=== PATIENT | male | born 1955 | race African-American/Black ===

== ENCOUNTER 2021-11-21 23:36 | Inpatient (IN) ==
[2021-11-21] MEDS ORDERED: ALBUTEROL 2.5 MG/3 ML NEB RESP TX STA (23:56)
[2021-11-21] MEDS ORDERED: ALBUTEROL/IPRATROPIUM 3 ML NEB RESP TX STA (23:56)
[2021-11-21] MEDS ORDERED: NITROGLYCERIN 2% OINT 1 INCH/GM PACK TOP STA (23:56)
[2021-11-21] MEDS ORDERED: methylPREDNISolone SOD SUC 125 MG/2 ML VIAL IV STA (23:56)
[2021-11-21] MEDS ORDERED: ASPIRIN 325 MG TABLET PO STA (23:56)
[2021-11-21] MEDS ORDERED: FUROSEMIDE 40 MG/4 ML VIAL IV STA (23:57)
[2021-11-22 00:15] LABS: Basophils # 0.1 10*3/uL (0.0-0.2); Basophils % 0.9 % (0.0-0.8); Eosinophils # 0.5 10*3/uL (0.0-0.87); Eosinophils % 6.7 % (0.00-10.9); Hemoglobin 12.1 GM/DL (14.0-18.0); Immature Granulocytes % 0.5 %; Immature Granulocytes Absolute 0.04 #; Lymphocytes # 1.4 10*3/uL (1.4-4.0); Lymphocytes % 17.3 % (21.2-54.2); Mean Corpuscular HGB Conc 29.5 GM/DL (32-36); Mean Corpuscular Volume 88.7 FL (87-102); Monocytes # 0.5 10*3/uL (0.11-0.8); Monocytes % 5.8 % (1.7-12.7); Neutrophils % 68.8 % (38.7-73.9); Platelet Count 212 T/CUMM (130-400); Red Blood Count 4.62 MC/CUMM (3.8-5.5); Red Cell Distribution Width 16.3 % (9.3-17.3); White Blood Count 8.1 T/CUMM (4-12)
[2021-11-22 00:27] LABS: Arterial Base Excess iSTAT 3 MMOL/L (-2.5-2.5); Arterial Bicarbonate iSTAT 30.6 MMOL/L (20-26); Arterial O2 Saturation iSTAT 89 % (95-100); Arterial PCO2 iSTAT 58 MM HG (35-48); Arterial PO2 iSTAT 63 MM HG (80-95); Arterial Total CO2 iSTAT 32 MMO/L (23-27); Arterial pH iSTAT 7.332 (7.35-7.45)
[2021-11-22 00:32] LABS: Albumin 3.1 G/DL (3.4-5.0); Bilirubin,Total 0.5 MG/DL (0.20-1.00); Calcium 8.8 MG/DL (8.5-10.1); Total Protein 7.4 G/DL (6.4-8.2)
[2021-11-22] MEDS ORDERED: VANCOMYCIN INJ 1,000 MG in SODIUM CHLORIDE 0.9% 250 ML IV STA (00:43)
[2021-11-22] MEDS ORDERED: PIPERACILLIN/TAZOBACTAM 3,375 MG in SODIUM CHLORIDE 0.9% 100 ML IV STA (00:43)
[2021-11-22] MEDS ORDERED: ALBUTEROL 2.5 MG/3 ML NEB RESP TX STA (00:45)
[2021-11-22 00:46] LABS: PT Patient Result 11.4 SECS (10.5-12.0)
[2021-11-22] MEDS ORDERED: ONDANSETRON 4 MG/2 ML VIAL IV PRN (02:09)
[2021-11-22] MEDS ORDERED: cefTRIAXone 2,000 MG in SODIUM CHLORIDE 0.9% 100 ML IV SCH ×2 (02:30→13:00)
[2021-11-22 07:07] LABS: Albumin 3.3 G/DL (3.4-5.0); Bilirubin,Total 0.6 MG/DL (0.20-1.00); Calcium 9.2 MG/DL (8.5-10.1); Osmolality,Calculated 282.4 MOS/KG (273-304); Potassium 4.1 MMOL/L (3.5-5.1); Total Protein 7.4 G/DL (6.4-8.2)
[2021-11-22 07:14] LABS: Basophils % 0.2 % (0.0-0.8); Eosinophils % 0.2 % (0.00-10.9); Hematocrit 39.4 VOL% (42.0-52.0); Hemoglobin 11.8 GM/DL (14.0-18.0); Immature Granulocytes % 0.2 %; Immature Granulocytes Absolute 0.01 #; Lymphocytes # 0.3 10*3/uL (1.4-4.0); Lymphocytes % 7.3 % (21.2-54.2); Mean Corpuscular HGB Conc 29.9 GM/DL (32-36); Mean Corpuscular Volume 88.3 FL (87-102); Mean Platelet Volume 11.9 FL (9.6-12.0); Monocytes # 0.1 10*3/uL (0.11-0.8); Monocytes % 1.3 % (1.7-12.7); Neutrophils % 90.8 % (38.7-73.9); Platelet Count 189 T/CUMM (130-400); Red Blood Count 4.46 MC/CUMM (3.8-5.5); Red Cell Distribution Width 15.9 % (9.3-17.3); White Blood Count 4.5 T/CUMM (4-12)
[2021-11-22 07:17] LABS: Eosinophils 1 % (0-10); Hypochromia Slight; Lymphocytes 7 % (20-55); Microcytosis Slight; Platelet Estimate Adequate; Total Cells Counted 100
[2021-11-22] MEDS: ALBUTEROL/IPRATROPIUM 3 ML NEB RESP TX SCH ×3 (07:42→19:45)
[2021-11-22] MEDS: VALSARTAN 80 MG TABLET PO SCH (09:00)
[2021-11-22] MEDS: PANTOPRAZOLE 40 MG TABLET PO SCH (09:00)
[2021-11-22] MEDS: SPIRONOLACTONE 25 MG TABLET PO SCH (09:00)
[2021-11-22] MEDS: ASPIRIN EC 81 MG TABLET PO SCH (09:00)
[2021-11-22] MEDS: carvediloL 12.5 MG TABLET PO SCH ×2 (09:00→20:50)
[2021-11-22] MEDS: ENOXAPARIN 40 MG/0.4 ML SYRINGE SUBCUT SCH (09:00)
[2021-11-22] MEDS: BUDESONIDE/FORMOTEROL 160-4.5 INHALER 6 GM INH SCH ×2 (09:00→20:51)
[2021-11-22] MEDS: methylPREDNISolone SOD SUC 40 MG/1 ML VIAL IV SCH ×2 (09:26→17:19)
[2021-11-22] MEDS: AZITHROMYCIN INJ 500 MG in SODIUM CHLORIDE 0.9% 250 ML IV SCH (12:08)
[2021-11-22] MEDS: ACETAMINOPHEN 325 MG TABLET PO PRN (15:41)
[2021-11-22] MEDS: ISOSORBIDE DINITRATE 10 MG TABLET PO SCH (17:19)
[2021-11-22] MEDS ORDERED: ROSUVASTATIN 20 MG TABLET PO SCH (21:00)
[2021-11-23] MEDS: ALBUTEROL/IPRATROPIUM 3 ML NEB RESP TX SCH ×3 (00:30→13:55)
[2021-11-23] MEDS: methylPREDNISolone SOD SUC 40 MG/1 ML VIAL IV SCH ×2 (02:57→09:57)
[2021-11-23] MEDS: ACETAMINOPHEN 325 MG TABLET PO PRN (08:23)
[2021-11-23] MEDS: ISOSORBIDE DINITRATE 10 MG TABLET PO SCH (08:24)
[2021-11-23] MEDS: ENOXAPARIN 40 MG/0.4 ML SYRINGE SUBCUT SCH (09:46)
[2021-11-23] MEDS: carvediloL 12.5 MG TABLET PO SCH (09:48)
[2021-11-23] MEDS: VALSARTAN 80 MG TABLET PO SCH (09:49)
[2021-11-23] MEDS: PANTOPRAZOLE 40 MG TABLET PO SCH (09:49)
[2021-11-23] MEDS: SPIRONOLACTONE 25 MG TABLET PO SCH (09:50)
[2021-11-23] MEDS: ASPIRIN EC 81 MG TABLET PO SCH (09:50)
[2021-11-23] MEDS: BUDESONIDE/FORMOTEROL 160-4.5 INHALER 6 GM INH SCH (09:54)
[2021-11-23 12:08] VITALS: BP 157/83
[2021-11-23] MEDS: AZITHROMYCIN INJ 500 MG in SODIUM CHLORIDE 0.9% 250 ML IV SCH (12:18)
== END 2021-11-23 14:00 | disposition home or self-care (01) | DRG 140 ==
LOC: N.ED 23:36 → N.EDINP 11-22 01:54 → N.TELEN 11-22 17:03
PROVIDERS: ADMIT Internal Medicine; ATTEND Internal Medicine

== ENCOUNTER 2022-04-21 21:22 | Observation (INO) ==
[2022-04-21 21:50] LABS: Basophils % 0.4 % (0.0-0.8); Eosinophils # 0.3 10*3/uL (0.0-0.87); Eosinophils % 3.1 % (0.00-10.9); Hematocrit 39.7 VOL% (42.0-52.0); Immature Granulocytes % 0.6 %; Immature Granulocytes Absolute 0.05 #; Lymphocytes # 1.6 10*3/uL (1.4-4.0); Lymphocytes % 17.6 % (21.2-54.2); Mean Corpuscular HGB Conc 30.2 GM/DL (32-36); Mean Corpuscular Volume 86.7 FL (87-102); Mean Platelet Volume 11.4 FL (9.6-12.0); Monocytes # 0.5 10*3/uL (0.11-0.8); Neutrophils % 72.3 % (38.7-73.9); Platelet Count 234 T/CUMM (130-400); Red Blood Count 4.58 MC/CUMM (3.8-5.5); Red Cell Distribution Width 15.3 % (9.3-17.3); White Blood Count 8.9 T/CUMM (4-12)
[2022-04-21] MEDS ORDERED: methylPREDNISolone SOD SUC 125 MG/2 ML VIAL IV STA (22:00)
[2022-04-21] MEDS ORDERED: SODIUM CHLORIDE 0.9% 1,000 ML IV STA (22:00)
[2022-04-21] MEDS ORDERED: ALBUTEROL 2.5 MG/3 ML NEB RESP TX STA (22:00)
[2022-04-21] MEDS ORDERED: ALBUTEROL/IPRATROPIUM 3 ML NEB RESP TX STA (22:00)
[2022-04-21 22:12] LABS: INR 1.1; PT Patient Result 12.1 SECS (10.1-12.1)
[2022-04-21 22:20] LABS: Albumin 3.2 G/DL (3.4-5.0); Bilirubin,Total 0.7 MG/DL (0.20-1.00); Total Protein 7.6 G/DL (6.4-8.2)
[2022-04-21] MEDS ORDERED: FUROSEMIDE 40 MG/4 ML VIAL IV STA (22:23)
[2022-04-21 22:28] LABS: Arterial Base Excess iSTAT 4 MMOL/L (-2.5-2.5); Arterial Bicarbonate iSTAT 29.3 MMOL/L (20-26); Arterial O2 Saturation iSTAT 99 % (95-100); Arterial PCO2 iSTAT 48 MM HG (35-48); Arterial PO2 iSTAT 160 MM HG (80-95); Arterial Total CO2 iSTAT 31 MMO/L (23-27); Arterial pH iSTAT 7.397 (7.35-7.45)
[2022-04-21 23:54] LABS: Mucus,Urine Occasional /LPF (Occasional)
[2022-04-21 23:56] LABS: Bilirubin,Urine Negative (Negative); Blood, Urine Negative (Negative); Glucose,Urine (UA) Negative (Negative); Ketones,Urine Negative (Negative); Nitrite,Urine Negative (Negative); Protein,Urine Trace mg/dL (Negative); Urine Appearance Clear (Clear); Urine Color Yellow (Yellow); Urine Specific Gravity 1.025 (1.001-1.035); Urine Urobilinogen 0.2 eU/dL (<2.0)
[2022-04-22] MEDS ORDERED: cefTRIAXone 1,000 MG in SODIUM CHLORIDE 0.9% 100 ML IV STA (00:43)
[2022-04-22] MEDS ORDERED: AZITHROMYCIN INJ 500 MG in SODIUM CHLORIDE 0.9% 250 ML IV STA (00:43)
[2022-04-22] MEDS ORDERED: hydrALAZINE 20 MG/1 ML VIAL IV PRN (01:11)
[2022-04-22] MEDS ORDERED: ACETAMINOPHEN 325 MG TABLET PO PRN (01:11)
[2022-04-22] MEDS ORDERED: MORPHINE 2 MG/1 ML SYRINGE IV PRN (01:11)
[2022-04-22] MEDS ORDERED: ONDANSETRON 4 MG/2 ML VIAL IV PRN (01:11)
[2022-04-22] MEDS: methylPREDNISolone SOD SUC 40 MG/1 ML VIAL IV SCH ×3 (05:10→22:19)
[2022-04-22 06:14] LABS: Calcium 9.4 MG/DL (8.5-10.1); Osmolality,Calculated 280.5 MOS/KG (273-304); Potassium 3.4 MMOL/L (3.5-5.1)
[2022-04-22 06:33] LABS: Basophils % 0.2 % (0.0-0.8); Eosinophils % 0.2 % (0.00-10.9); Hematocrit 44.3 VOL% (42.0-52.0); Immature Granulocytes % 0.6 %; Immature Granulocytes Absolute 0.03 #; Lymphocytes # 0.3 10*3/uL (1.4-4.0); Lymphocytes % 6.7 % (21.2-54.2); Mean Corpuscular HGB Conc 30.5 GM/DL (32-36); Mean Corpuscular Volume 86.2 FL (87-102); Mean Platelet Volume 12.8 FL (9.6-12.0); Monocytes # 0.1 10*3/uL (0.11-0.8); Neutrophils % 91.3 % (38.7-73.9); Platelet Count 244 T/CUMM (130-400); Red Blood Count 5.14 MC/CUMM (3.8-5.5); Red Cell Distribution Width 15.2 % (9.3-17.3); White Blood Count 5.1 T/CUMM (4-12)
[2022-04-22 06:34] LABS: Hemoglobin 13.5 GM/DL (14.0-18.0)
[2022-04-22 06:42] LABS: Lymphocytes 2 % (20-55); Platelet Estimate Adequate; Total Cells Counted 100
[2022-04-22 06:43] LABS: Hypochromia Slight
[2022-04-22] MEDS: ALBUTEROL/IPRATROPIUM 3 ML NEB RESP TX SCH ×3 (07:15→21:11)
[2022-04-22] MEDS: PANTOPRAZOLE 40 MG TABLET PO SCH (09:21)
[2022-04-22] MEDS: VALSARTAN 80 MG TABLET PO SCH (09:21)
[2022-04-22] MEDS: BUDESONIDE/FORMOTEROL 160-4.5 INHALER 6 GM INH SCH ×2 (09:22→20:51)
[2022-04-22] MEDS: carvediloL 12.5 MG TABLET PO SCH ×2 (09:22→20:51)
[2022-04-22] MEDS: FUROSEMIDE 40 MG/4 ML VIAL IV SCH ×2 (09:24→16:16)
[2022-04-22] MEDS: POTASSIUM CHLORIDE 20 MEQ TABLET PO PRN ×2 (09:31→16:14)
[2022-04-22] MEDS: DAPAGLIFLOZIN 10 MG TABLET PO SCH (10:39)
[2022-04-22] MEDS: ASPIRIN EC 81 MG TABLET PO SCH (10:39)
[2022-04-22] MEDS: hydrALAZINE 25 MG TABLET PO SCH ×3 (10:40→20:51)
[2022-04-22] MEDS: SPIRONOLACTONE 25 MG TABLET PO SCH (10:40)
[2022-04-22] MEDS: ISOSORBIDE MONONITRATE 30 MG TABLET PO SCH (10:40)
[2022-04-22] MEDS ORDERED: ENOXAPARIN 40 MG/0.4 ML SYRINGE SUBCUT SCH (21:00)
[2022-04-22] MEDS ORDERED: ROSUVASTATIN 20 MG TABLET PO SCH (21:00)
[2022-04-23] MEDS: ALBUTEROL/IPRATROPIUM 3 ML NEB RESP TX SCH ×3 (00:07→13:43)
[2022-04-23 05:52] LABS: Calcium 9.3 MG/DL (8.5-10.1); Osmolality,Calculated 281.7 MOS/KG (273-304); Potassium 4.2 MMOL/L (3.5-5.1)
[2022-04-23 05:54] LABS: Hemoglobin 13.5 GM/DL (14.0-18.0); Immature Granulocytes % 0.6 %; Immature Granulocytes Absolute 0.05 #; Lymphocytes # 0.6 10*3/uL (1.4-4.0); Lymphocytes % 7.4 % (21.2-54.2); Mean Corpuscular HGB Conc 30.1 GM/DL (32-36); Mean Corpuscular Volume 87.2 FL (87-102); Mean Platelet Volume 12.7 FL (9.6-12.0); Monocytes # 0.2 10*3/uL (0.11-0.8); Monocytes % 2.6 % (1.7-12.7); Neutrophils % 89.4 % (38.7-73.9); Platelet Count 250 T/CUMM (130-400); Red Blood Count 5.15 MC/CUMM (3.8-5.5); Red Cell Distribution Width 15.1 % (9.3-17.3); White Blood Count 7.9 T/CUMM (4-12)
[2022-04-23 05:56] LABS: Hematocrit 44.9 VOL% (42.0-52.0)
[2022-04-23 06:34] LABS: Risk Ratio 3.02; VLDL Cholesterol 12.4 MG/DL
[2022-04-23] MEDS: methylPREDNISolone SOD SUC 40 MG/1 ML VIAL IV SCH ×2 (07:21→14:38)
[2022-04-23] MEDS: DAPAGLIFLOZIN 10 MG TABLET PO SCH (09:54)
[2022-04-23] MEDS: VALSARTAN 80 MG TABLET PO SCH (09:54)
[2022-04-23] MEDS: ASPIRIN EC 81 MG TABLET PO SCH (09:55)
[2022-04-23] MEDS: SPIRONOLACTONE 25 MG TABLET PO SCH (09:55)
[2022-04-23] MEDS: PANTOPRAZOLE 40 MG TABLET PO SCH (09:55)
[2022-04-23] MEDS: carvediloL 12.5 MG TABLET PO SCH (09:55)
[2022-04-23] MEDS: hydrALAZINE 25 MG TABLET PO SCH (09:56)
[2022-04-23] MEDS: ISOSORBIDE MONONITRATE 30 MG TABLET PO SCH (09:56)
[2022-04-23] MEDS: BUDESONIDE/FORMOTEROL 160-4.5 INHALER 6 GM INH SCH (09:57)
[2022-04-23] MEDS: FUROSEMIDE 40 MG/4 ML VIAL IV SCH (09:58)
[2022-04-23 12:11] VITALS: BP 133/81
[2022-04-24] MEDS ORDERED: FUROSEMIDE 40 MG TABLET PO SCH (09:00)
== END 2022-04-23 16:00 | disposition home or self-care (01) ==
LOC: N.ED 21:22 → N.EDINP 04-22 01:11 → INTOOBSV 04-22 01:11 → N.EDINP 04-22 02:50 → N.TELEN 04-22 03:18
PROVIDERS: ADMIT Internal Medicine; ATTEND Internal Medicine